=== PATIENT | female | born 1980 | race Caucasian/White ===

== ENCOUNTER → 2021-05-02 14:20 | Outpatient (CLI) | payer MEDICARE, MEDICAID, SELFPAY ==
--- NOTE | 2021-05-02 14:28 | DI.US.S_ITS ---
PROCEDURE: US PELVIC COMPLETE INDICATIONS: MENORRHAGIA TECHNIQUE: Real-time scanning was performed of the pelvic organs, with image documentation. Additional endovaginal scanning was necessary due to incomplete visualization of the adnexal and endometrial structures by transabdominal scanning. COMPARISON: [facility], US, US PELVIC+TRANSVAG, 11/01/2016, 13:28. FINDINGS: Uterus: Uterus is normal in size at 9.4 x 5.2 x 6.6 cm. The endometrium measures 18.3 mm in combined thickness. 9 mm cystic structure so should with the endometrial complex which is mildly complex with wall irregularity. 11 mm intramural fibroid. Ovaries: Ovaries not identified. No adnexal masses seen. Other: No pathologic free abdominal or pelvic fluid. Debris noted within the urinary bladder. IMPRESSION: 1. Abnormal appearance endometrial complex which is thickened and there is a complex cystic structure centrally. Although findings may be related to endometrial hyperplasia, other benign or malignant endometrial neoplasms cannot be excluded and close clinical correlation is recommended. Recommend short-term follow-up pelvic ultrasound to assess for interval thinning and if the thickening persists, recommend endometrial biopsy for pathologic diagnosis. 2. Debris within the urinary bladder. Recommend correlation with urinalysis to exclude cystitis. Dictated by: Beltran GILES Interpreted: Howard Barajas MD on 05/02/2021 at 16:31 Transcribed by: ALVA on 05/02/2021 at 16:33 Approved by: Howard Barajas M.D. on 05/03/2021 at 17:11
== END ==
PROVIDERS: PCP Family Medicine; Referring Provider Obstetrics & Gynecology; Visit Provider Obstetrics & Gynecology
DX: N92.1 Excessive and frequent menstruation with irregular cycle (principal); R93.89 Abnormal findings on diagnostic imaging of other specified body structures; D25.1 Intramural leiomyoma of uterus; N85.8 Other specified noninflammatory disorders of uterus
CPT/HCPCS: 76830; 76856

== ENCOUNTER → 2021-05-03 16:54 | Outpatient (CLI) | payer MEDICARE, SELFPAY ==
[2021-05-03 19:16] LABS: Luteinizing Hormone 6.26 mIU/mL
== END ==
PROVIDERS: PCP Family Medicine; Referring Provider Obstetrics & Gynecology; Visit Provider Obstetrics & Gynecology
DX: N95.1 Menopausal and female climacteric states (principal)
CPT/HCPCS: 36415; 83001; 83002

== ENCOUNTER → 2021-07-14 14:52 | Outpatient (CLI) | payer MEDICARE, MEDICAID, SELFPAY ==
[2021-07-14 16:30] LABS: Alanine Aminotransferase 66 IU/L (<35); Albumin 4.3 g/dL (3.5-5.0); Albumin Globulin Ratio 1.9 (1.0-2.8); Alkaline Phosphatase 63 U/L (38-126); Aspartate Aminotransferase 48 IU/L (14-36); Bilirubin Total 0.2 mg/dL (0.2-1.3); Bilirubin Unconjugated 0.2 mg/dL (0.0-1.1); Globulin 2.3 g/dL (1.7-4.1); HEMOLYSIS < 15 (0-50); Total Protein 6.6 g/dL (6.3-8.2)
== END ==
PROVIDERS: PCP Family Medicine; Referring Provider Obstetrics & Gynecology; Visit Provider Obstetrics & Gynecology
DX: R82.2 Biliuria (principal)
CPT/HCPCS: 36415; 80076

== ENCOUNTER → 2021-09-26 12:59 | Outpatient (CLI) | payer MEDICARE, MEDICAID, SELFPAY ==
[2021-09-26 14:06] LABS: COVID19 -Nasal RAPID Negative (Negative)
== END ==
PROVIDERS: PCP Family Medicine; Visit Provider Obstetrics & Gynecology
DX: Z01.812 Encounter for preprocedural laboratory examination (principal); Z20.822 Contact with and (suspected) exposure to COVID-19
CPT/HCPCS: 87635

== ENCOUNTER 2021-09-28 08:35 | Day surgery (SDC) | payer MEDICARE, MEDICAID, SELFPAY ==
[2021-09-25 09:51] VITALS: BMI 28.5
[2021-09-28] VITALS (15 sets, daily range): BP systolic 107–141; BP diastolic 45–90; PULSE 60–98; RESP 14–19; TEMP 36.1–37.3; O2SAT 92–99; BMI 28.5
--- NOTE | 2021-09-28 | PATH_ITS ---
[facility] Accession Number: [id number] . 01 Material submitted: . uterus - UTERUS, BILATERAL TUBES, CERVIX . 02 Diagnosis: Uterus, Bilateral Tubes and Cervix, Hysterectomy, Bilateral Salpingectomy: 1. Adenomyosis. 2. Leiomyomas. 3. Non-cycling endometrium. 4. Bilateral fallopian tubes with no diagnostic abnormality. 5. No evidence of malignancy or atypical hyperplasia. [facility] 10/03/2021 1422 Local . 02 Electronically signed: . Marley Vega MD, Pathologist NPI- [id number] . 01 Gross description: . The specimen is received in formalin, labeled uterus, cervix, bilateral tubes and consists of a 132 gram uterus and cervix measuring 11.0 cm from superior fundus to cervix by 7.0 cm from cornu to cornu by 4.2 cm from anterior to posterior. The serosa is du-pink and smooth. The du-pink smooth ectocervix measures 3.2 x 3.0 cm and there is a 0.3 x 0.3 cm os. The specimen is bivalved to reveal a du-pink herringbone endocervical mucosa. The endometrial cavity measures 4.2 x 3.0 cm and displays a du-pink focally hemorrhagic endometrium measuring 0.3 cm in thickness. The myometrium is du-pink and trabeculated measuring 2.0 cm in thickness. There are two du-white whorled leiomyomata measuring 0.4 x 0.4 x 0.3 cm and 2.5 x 1.8 x 1.2 cm. No areas of hemorrhagic, necrosis or cystic degeneration are identified. Also received are two detached fallopian tubes measuring 1.5 cm in length by 0.6 cm in diameter and 2.5 cm in length by 0.7 cm in diameter. The serosa is du-pink and ragged with multiple paratubal cysts ranging from 0.1-0.3 cm. Sectioning reveals a du-pink mucosa and a stellate lumen measuring 0.2 cm in diameter. Otr Tanker Truck Driver sections are submitted. . A1: Anterior cervix. A2: Posterior cervix. A3-A5: Anterior uterus, to include retail representative leiomyomata. A6-A7: Posterior uterus. A8-A9: Fallopian tubes, central cross sectioned and bisected fimbria. (EA:[id number]) /MRV 09/29/2021 1210 Local . 02 Pathologist provided ICD-10: N92.1, N80.0, D25.9 . 02 CPT . 268563 Performed at: 01 [facility] [address] [id number] MD Manish Painting MD Phone: [phone] Performed at: 02 [facility] [place] [address] [place], [place] [id number] MD Marley Vega MD Phone: [phone]
[2021-09-28] MEDS: LACTATED RINGERS 1,000 ML 42 ML IV ×2 (09:16→11:44)
[2021-09-28 09:26] LABS: Add Manual Diff / Slide Review NO; Basophils Absolute Auto 0 /uL (0-100); Basophils Percent Auto 0.7 % (0-2); Eosinophils Absolute Auto 0 /uL (0-450); Eosinophils Percent Auto 0.6 % (2-4); Hematocrit 38.8 % (36-46); Hemoglobin 12.8 g/dL (12.0-16.0); Lymphocytes Absolute Auto 1600 /uL (1100-4500); Mean Corpuscular HGB Conc 33.1 % (30-36); Mean Corpuscular Hemoglobin 27.7 PG (26-34); Mean Corpuscular Volume 83.7 fL (80-100); Monocytes Absolute Auto 300 /uL (0-900); Neutrophils Absolute Auto 3700 /uL (1500-7000); Neutrophils Percent Auto 64.7 % (50-75); Platelet Count 358 X10^3/uL (150-400); Red Blood Cell Count 4.63 X10^6/uL (4.0-5.2); Red Cell Distribution Width 15.6 % (11.6-14.8); White Blood Cell Count 5.7 X10^3/uL (4.5-11.0)
--- NOTE | 2021-09-28 09:50 | PM.PREOP ---
Pre-operative Note COVID-19 COVID-19 status: Negative Result date/Date tested (Pos, Neg/Pending): 09/26/21 Interval Note History & Physical reviewed/Exam performed by Physician: Yes Changes to H&P: No
[2021-09-28] MEDS: CEFAZOLIN 2 GM/20 ML SYRINGE IV (11:10)
--- NOTE | 2021-09-28 11:30 | SUR.OPER ---
Lithotomy on padded OR bed. [place] Pad Positioner under torso. Head on pillow, arms padded and tucked at sides. Legs secured in padded yellow fins stirrups.
[2021-09-28] MEDS: BUPIVACAINE 0.5% W/ EPI (PF) 30 ML VIAL INJ (11:33)
[2021-09-28] MEDS: ACETAMINOPHEN IV 1,000 MG/100 ML VIAL 400 MG IV (12:18)
[2021-09-28] MEDS: ROPIVACAINE 0.2% PF 2 MG/ML 10ML AMP 20 ML INJ (12:20)
[2021-09-28] MEDS: HYDROMORPHONE 2 MG INJ IV ×9 (12:45→23:47)
[2021-09-28] MEDS: fentaNYL 100 MCG/2 ML INJ (12:57)
[2021-09-28] MEDS: MEPERIDINE 50 MG/ML INJ 25 MG IV ×2 (13:04→13:11)
--- NOTE | 2021-09-28 13:08 | PM.GYNOP.1 ---
Operative Date/Time/Diagnoses Date of procedure: 09/28/21 Time of procedure: 11:00 Pre-op diagnosis: Menometrorrhagia Thickened endometrial stripe on ultrasound Post-op diagnosis: same Procedure & Clinicians Procedure: Procedures Operation Date: 09/28/21 09:45 Actual Procedure Side Surgeon p Total Laparoscopic Hysterectomy w/ Bilateral Salpingectomy Bilateral Aaron Baum MD Indications: Herminia Herrera) is a 40 yo LMP approximately two weeks ago who?presented initially in referral from Dr. Jere Salter for evaluation of an 8 month history of menometrorrhagia associated with her being on chemotherapy for essential thrombocytosis.? Prior 16 months ago, the patient had regular, predictable periods lasting 3-5 days at 28-30 day intervals.? With the initiation of chemotherapy however she began bleeding continuously and continued to bleed continuously up until about 2 months ago.? She states that she has not had any vaginal bleeding while on hydroxyurea for essential thrombocytosis and has experienced symptoms suggestive of premature ovarian failure but FSH and LH are not consistent with ovarian failure. A pelvic US performed at diagnostic imaging on 05/02/2021 showed: FINDINGS: ? Uterus:? Uterus is normal in size at 9.4 x 5.2 x 6.6 cm.? The endometrium measures 18.3 mm in combined thickness.? 9 mm cystic structure so should with the endometrial complex which is mildly complex with wall irregularity.? 11 mm intramural fibroid. ? Ovaries:? Ovaries not identified.? No adnexal masses seen. ? Other: ? No pathologic free abdominal or pelvic fluid.? Debris noted within the urinary bladder. ? IMPRESSION: ? 1. Abnormal appearance endometrial complex which is thickened and there is a complex cystic structure centrally.? Although findings may be related to endometrial hyperplasia, other benign or malignant endometrial neoplasms cannot be excluded and close clinical correlation is recommended.? Recommend short-term follow-up pelvic ultrasound to assess for interval thinning and if the thickening persists, recommend endometrial biopsy for pathologic diagnosis. ? 2. Debris within the urinary bladder.? Recommend correlation with urinalysis to exclude cystitis. Subsequent endometrial biopsy shows only DIS synchronous endometrium but no atypia, hyperplasia, or neoplasia.? In addition to the menstrual abnormalities experienced while on chemotherapy, the patient also has been having white patches in the vagina and on the perineal area.? They are not pruritic and seemingly come and go with no association to any events, activities, or her menstrual cycle.? Initial response to clobetasol minimal for what was thought to be lichen sclerosus and dermatology consult confirmed.? Hydroxyurea was discontinued and the lesions have steadily improved but her severe menometrorrhagia has returned even worse than ever.? The patient has a past history of pulmonary embolus and uterine perforation with prior use of an intrauterine device.? She also expresses a desire to avoid any sort of hormone therapy if necessary insofar as treatment of her abnormal periods. She has been found to have iron deficiency anemia during her treatment and this is thought to be aggravated by her excessive menses. After consideration of all options the patient has opted to move forward with total laparoscopic hysterectomy with bilateral salpingectomy and preservation of her ovaries.? She is currently scheduled to have her surgery performed in the main OR of [facility] on 09/28/2021 and presents today for her scheduled surgery. Surgeon: Aaron Baum Medical Imaging Specialist: Adelita Dow Anesthesia Type: General Operative Notes Findings: The uterus is upper limits of normal size and there is a left sided fundal myoma measuring approximately 2.5 cm in diameter. The remainder the pelvis and abdomen were normal to laparoscopic visualization. Closure Type: primary Specimen(s): left tube, right tube and uterus Applied: catheter Estimated blood loss (mL): 50 Blood products transfused: none Procedure in detail: With the patient under satisfactory general endotracheal anesthesia in the modified dorsal lithotomy position the perineum vagina and abdomen were prepped and draped for total laparoscopic hysterectomy. A pre-surgical safety time-out was then taken in accordance with [facility] protocols. A bivalve speculum was inserted in the vagina and the cervix visualized. The anterior lip of the cervix was grasped with a single-tooth tenaculum and the endocervical canal was dilated to 8 mm. A Shirley Mae's uterine manipulator with a medium cup was then placed in the usual manner and attention turned to the laparoscopic portion of the case. The umbilicus was then infiltrated with 0.5% Marcaine with epinephrine and a 5 mm transverse incision was then made in the line of her tubal ligation scar. The Veress needle was used to insufflate the abdomen with carbon dioxide and once insufflated a 5 mm bladeless trocar was then placed through the umbilical incision. Presence of the port in the abdominal cavity was confirmed laparoscopically. Two additional 5 mm ports were then placed in both the left and right mid quadrants using a similar technique. Using a 3 puncture technique the pelvis and abdomen were thoroughly visualized with the findings as noted above. Uterine manipulator was was used to grasp the distal aspect of the right fallopian tube and it was excised using a LigaSure device. The distal tubal remnant was then removed through one of the laparoscopic ports and submitted as part of the aggregate specimen. The dissection with the LigaSure was then carried across the utero-ovarian ligament on the right-hand side followed by the round on that side. The dissection was then carried out down the lateral aspect of the uterus on the right-hand side to the level of the colpotomy cup and at that point the bladder flap was created starting on the right side. Dissection of the peritoneum was then carried out posteriorly across the edge of the colpotomy cup and attention was then turned to the left side. The distal fallopian tube on the left side was then excised using LigaSure device and submitted along with the distal aspect of the right fallopian tube. The dissection was carried down across the utero-ovarian ligaments, the round ligament, and down the lateral aspect of the uterus on the left side to the level of the colpotomy cup. The vessels were then coagulated and divided on the left-hand side as they had been on the right and the uterus was seen to laine confirming devascularization. Once the tissues overlying the colpotomy cup had been fully devascularized and dissected away, a monopolar hook cautery was used to perform the circumferential colpotomy using the colpotomy cup as a guide. Colpotomy was completed without difficulty and the uterus was able to be removed vaginally without difficulty. At that point closure of the vaginal cuff was accomplished after placing a medium weighted speculum in the vagina. 0 Vicryl qimzoz-hv-lonla interrupted were used to close the vaginal cuff and at the completion of closure the cuff was both hemostatic and all edges well approximated. The abdomen was then reinsufflated and attention was then turned to inspection of the pelvis which was completely hemostatic. The ureters were seen to be freely peristalsing on both sides and no abnormalities were noted. 20 cc of ropivacaine was then placed in the posterior cul-de-sac and the pneumoperitoneum was vented. The 5 mm port sleeves were then removed and the port incisions closed with 4-0 Monocryl using inverted interrupted sutures. Appropriate dressings were applied and the patient was awakened from surgery and transported to the PACU for a period of recovery and recuperation. Complications experience none, EBL approximately 50 cc. Complications: none Post-operative Condition: stable Disposition: PACU
[2021-09-28] MEDS: fentaNYL 100 MCG/2 ML INJ IV ×2 (13:20→13:25)
[2021-09-28] MEDS: LORazepam 2 MG/ML INJ 0.5 MG IV ×2 (13:23→13:35)
[2021-09-28] MEDS: OXYCODONE/ACETAMINOPHEN 5/325 TABLET 1 TAB PO ×2 (13:40→14:13)
[2021-09-28] MEDS: LACTATED RINGERS 1,000 ML 100 ML IV (15:25)
--- NOTE | 2021-09-28 16:14 | PC.NURSE ---
Addendum entered by Liliane Suggs R.N. 09/28/21 17:13: Patient given IV pain medication at 1522, became agitated around 1650 asking for pain meds. Explained to patient that she gets the medication every 2 hours, she asked if this RN could call the Dr. and this RN stated not as this time. He already addressed pain issues and knows that patient is going to have a difficult management with medication. She implied that she was not drug seeking but stated that I was treating her like an addict, saying that I was treating her differently then everyone else. This RN explained to patient that we would not be able to give pain medication every hour and that her pain is not going to go away 100%, but it is given to make her comfortable. Patients attitude changed right away to sweet as soon as she was given 2mg of iv dilaudid at 1700. Pain medication is every 2 hours and she is able to have it half an hour early. Will reassess her discomfort in two hours. She also did share her past with this RN and explained that she takes methadone daily for hx of drug abuse in the past. She does have a high pain tolerance and we will give pain medication accordingly. Patient does have 4mg of iv dilaudid available and if she needs this later we can try it. She had several doses of pain medication in the pacu, along with ativan. This RN does not feel comfortable giving 4mg at this time and we are watching her mentation closely and her respirations. Original Note: Assess- Patient is alert and oriented x3. She has 3 small lap sites that are all cdi, with a prema pad and suggs catheter in place. Patient takes methadone daily and states that she has a high pain tolerance. She was given several pain medications and ativan down in the pacu. Patient has been awake since being up on the floor and states that her pain is a 7/10. Given 2mg of iv dilaudid and helpful to patient, she has LR at 100cc/hr infusing and is tolerating this well. Delio in the room with her. She is tolerating bites of food and drinks without any nausea.
[2021-09-28] MEDS: ACETAMINOPHEN 325 MG TABLET 650 MG PO (19:46)
[2021-09-28] MEDS: HYDROMORPHONE 4 MG TABLET PO (19:47)
[2021-09-28] MEDS: LORazepam 0.5 MG TABLET PO (19:47)
[2021-09-28] MEDS: DOCUSATE 100 MG CAPSULE 200 MG PO (21:45)
[2021-09-28] MEDS: QUETIAPINE 100 MG TABLET PO (21:45)
[2021-09-28] MEDS: LEVOTHYROXINE 50 MCG TABLET PO (21:49)
[2021-09-28] MEDS: CLOBETASOL 0.05% OINTMENT 15 GM 1 APPLIC TOP (21:59)
[2021-09-29] VITALS: BP 121/69; PULSE 73; RESP 18; TEMP 36.3; O2SAT 96
[2021-09-29] MEDS: LACTATED RINGERS 1,000 ML 100 ML IV (01:06)
[2021-09-29] MEDS: HYDROMORPHONE 2 MG INJ IV ×2 (03:51→06:39)
[2021-09-29 03:53] VITALS: BP 118/78; PULSE 71; RESP 17; TEMP 36.7; O2SAT 97
[2021-09-29] MEDS: METHADONE 10 MG TABLET 90 MG PO (06:23)
--- NOTE | 2021-09-29 07:40 | PC.NURSE ---
Assess- Patient is pleasant this morning, denies pain at this time. She has 3 small incisions with dressings that are cdi. Patient has not needed pain medication thus far as she was given iv dilaudid. Will transition her over to 4mg of po dilaudid and see how this goes. got patient up to the bathroom and she had a bowel movement. Will remove suggs catheter when Dr. Baum comes to see patient.
--- NOTE | 2021-09-29 08:50 | CM.DANOTE ---
DCP: Case received, EMR reviewed and met with patient. Spouse, Blaze, was also at bedside. Introduced self and role. Was able to obtain information regarding patient's baseline activity level prior to hospitalization. DCP assessment completed with information currently available. Patient is a 40 year old female who admitted yesterday morning to the care of the [facility]. PCP: Dr. Luna. Payer: confirmed: Medicare/Medicaid. Patient came to the hospital via private vehicle for a surgical procedure. She had total laparoscopic hysterectomy with bilateral salpingectomy. Patient has history of menometorrhagia, associated with being on chemo for thromboycytosis. Met with patient in her room. She was in bed, at bedside. Confirmed that she is independent at her baseline. Her and her spouse reside in [place]. Her primary provider is Dr. Luna. Confirmed that spouse will assist her with any needs at home. P: DCP to continue to follow. Patient should be able to go home when she is deemed medically stable. Tavia Yousif RN/Deicer Repairer Pneumatic Discharge Planning/Care Management CM Discharge Assessment Start: 09/29/21 08:49 Freq: Status: Active Protocol: Document 09/29/21 08:49 (Rec: 09/29/21 08:50 [id number]) Discharge Planning Assessment Assigned Educational Speech Language Clinician Tavia Yousif RN/Deicer Repairer Pneumatic Advance Directives? No History Provided By Patient,Medical Record Household Members spouse Type of transporation used prior to Drives own vehicle admit Independent with ADL's Yes Is patient alert and oriented? Yes Caregiver for Another No Barriers to Discharge No Discharge Plan Home Transportation Arrangement Spouse Referrals Initiated None needed Review Status In Process Next Review Type Continued Stay Review Pre-Anesthesia Assessment Start: 09/25/21 09:51 Freq: Status: Active Protocol: Document 09/25/21 09:51 CAB (Rec: 09/25/21 09:58 CAB [id number]) Pre-Anesthesia Assessment Preferred Name Andree Patient Information Reviewed Via Chart Review Comment COVID screen @ 09/25/21 Primary Care Provider Mike Luna Seen Specialist in Last 12 Months Yes Specialist Seen Welding Equipment Repairer Supervisor,Ocean Biologist, Oncologist Primary Language Yoruba Osteopathic Resident Required No Height 5 ft 3 in Weight 161 lb Body Mass Index (BMI) 28.5 Barriers to Learning None Hx Anesthesia Reactions No Hx Blood Transfusions Yes: r/t severe anemia Anesthesia Review Requested No Research Professional No Comment Hx of subtance abuse'96 History of Falling (Recent or History of No ) Patient is completely paralyzed or No completely immobile Mental Status Oriented to own ability Hx Sleep Apnea No Currently Taking a Beta Elfego No Anti-Coagulant Therapy No Cardiac Testing No Hx Pacemaker/ICD No Pacemaker Rep Required? No Cardiac Clearance Received Not Applicable Urinary Catheter Present No Hx Urinary Self Catheterization No Diabetes No Patient No Lactating No Marital Status Patient Discharge Plan Description Return Home
[2021-09-29] MEDS: DOCUSATE 100 MG CAPSULE 200 MG PO (09:16)
--- NOTE | 2021-09-29 09:52 | PM.DS.1 ---
History of Present Illness History of Present Illness Date Patient Seen: 09/29/21 Time Patient Seen: 09:52 Chief complaint: HYSTERECTOMY *OPB* Narrative: Menometrorrhagia Thickened endometrial stripe on ultrasound Discharge Providers Provider Date of admission: 09/28/2021 Discharge Date: 09/29/21 Primary care physician: Mike Luna MD Discharge provider: Aaron Baum MD Summary Hospital Course Discharge Diagnosis: Menometrorrhagia, resolved Thickened endometrial stripe on ultrasound, resolved Status post total laparoscopic hysterectomy with bilateral salpingectomy Hospital Course: On the afternoon of 09/28/2021 the patient underwent an uneventful total laparoscopic hysterectomy with bilateral salpingectomy. The details of that procedure well summarized on my operative note of that date. Following her surgery the patient has done extremely well despite some issues with pain management due to her being on methadone maintenance. She is ambulating independently, has had prompt return of bowel and bladder function, tolerating regular diet, and her pain is well controlled with oral medications. Vital signs are stable and 1st postop a.m. CBC is pending due to late draw. Patient is now discharged and afebrile normotensive condition home with medications to include her pre-surgical medications as well as Dilaudid 2 mg 1-2 every 4 hours as needed pain dispense 40 with no refills, and Lovenox 40 mg subQ times 10 days. She will be scheduled to be seen in the office in 2 weeks for her postop check and prior to discharge she was counseled regarding precautionary symptoms, limitations, medications, and follow-up plans. In addition to Lovenox she I will initiate daily 81 mg aspirin therapy due to her history of DVT and essential thrombocytosis. Status at Discharge Cognitive/behavioral status at discharge: oriented Functional status at discharge: independent ambulation Overall status at discharge: patient is progressing back to baseline Time Spent with Patient Time spent: Less than 30 minutes Exam Vital Signs (past 8 hours): - 09/29/21 03:53 Temperature 98.1 F Pulse Rate 71 Respiratory Rate 17 Blood Pressure 118/78 Pulse Oximetry 97 Oxygen Delivery Method Room Air Oxygen Flow Rate 2 Const General: cooperative and comfortable Nutritional Appearance: average body habitus [facility] Head: normal to inspection Ears: hearing grossly normal bilaterally Nose: external nose normal Eyes General: appearance normal, both eyes and all related structures EOM: EOM intact bilaterally Neck Neck: normal visual inspection Resp Effort & Inspection: normal respiratory effort and able to speak in complete sentences Auscultation: clear to auscultation bilaterally Cardio Rate: regular rate Rhythm: regular rhythm Heart Sounds: S1 normal, S2 normal and no murmurs GI Inspection: normal to inspection and incision (All 3 laparoscopic port incision dressings are clean and dry) Palpation: soft, no hepatosplenomegaly and tender (Mild, postsurgical) External Female Exam: other (Exam deferred, no bleeding noted by patient or nursing staff) Extrem General: no calf tenderness Psych Appearance: grossly normal Mental Status: mental status grossly normal Speech and Movement: speech and movement normal Mood: congruent mood Affect: normal affect Attitude: cooperative Thought Process: normal Thought Content: normal Judgment: judgment good Objective Labs Result Diagrams: 09/29/21 09:50 [facility] Medical History (Updated 10/12/21 @ 11:41 by Aaron Baum MD) Abnormal uterine bleeding (AUB) ADHD (~1987) Amniotic fluid embolism Anemia (~2017) Anxiety (~2017) Atrophic vaginitis Cancer of blood vessel (~2018) Carpal tunnel syndrome (~2014) Cervical spine disease (~2014) Deep vein thrombosis (~2017) Endometrial thickening on ultrasound Essential thrombocytosis Fibromyalgia (~2017) Headache (~1985) Heavy menstrual period (~2018) History of bipolar disorder (~2009) Hypertension Hypothyroidism (~2008) Irregular menstrual cycle (~2018) Kidney stones (~2018) Leukemia (~2018) Menopausal symptoms Migraines (~1985) Oxygen dependent (~2019) Painful menstrual periods (~1992) Pulmonary embolism (~2017) Rheumatoid arthritis (~2007) Sarcoidosis (~2016) Substance abuse (~1995) Vertigo (~2003) Surgical History Anesthesia Encounter for IUD removal (~2014) History of tonsillectomy (~2001) History of tubal ligation (~2003) Family History Father Colon cancer Diabetes mellitus History of heart disease Hypertension Mother Brain tumor Social History household members: spouse Smoking Status: Never smoker alcohol intake: never Discharge Assessment & Plan Assessment and Plan Assessment: Menometrorrhagia Thickened endometrial stripe on ultrasound Status post total laparoscopic hysterectomy with bilateral salpingectomy Plan of Treatment: Routine postoperative care Postop Lovenox subQ times 10 days Discharge Plan Discharge Plan Patient Disposition: Home Provider Discharge Comment: Please review the written instructions provided at the time of discharge. Your follow-up appointment is scheduled for 2 weeks from the time of your surgery and I look forward to seeing you then. If the meanwhile you have issues, concerns, or problems that I can assist with, please feel free to contact me either through the office phone or via the patient portal. Discharge orders & Medications Discharge Orders: Discharge (Order); Ordered 09/29/21 Ordered By: Aaron Baum Prescriptions: New hydromorphone 2 mg tablet 2 mg PO Q4H PRN (Reason: pain) Qty: 40 0RF Rx Instructions: Slowly taper dosage to stop in 5 days or less. Continued clobetasol 0.05 % ointment 1 applic topical BID 14 Days Qty: 60 6RF quetiapine [Seroquel] 100 mg tablet 100 mg PO DAILY 0RF levothyroxine 50 mcg capsule 50 mcg PO DAILY 0RF hydroxychloroquine 200 mg tablet 200 mg PO DAILY 0RF lorazepam 0.5 mg tablet 0.5 mg PO BID PRN (Reason: Anxiety) 0RF dextroamphetamine-amphetamine [Adderall] 20 mg tablet 20 mg PO DAILY 0RF methadone 94 mg PO DAILY 0RF Discontinued hydroxyurea 500 mg capsule 500 mg PO DAILY 0RF Label Comments: stopped 2 months ago Follow up/Referrals: Mike Luna MD [Primary Care Provider] - Diet/Activity/Treatments Diet: Diet as Tolerated Activity: As tolerated Other treatments: Please limit opioid use to 5 days or less. Once Lovenox is completed after 10 days, restart daily aspirin 81 mg. Skin/Wound/Dressing Care Report to your healthcare provider any signs of infection, such as:: chills, fever, increased pain, unusual drainage and unusual redness Dressing: May be removed on the morning of 09/30/2021 Visit Report/Discharge Packet Instructions: DI for Hysterectomy, DI for Laparoscopy, DI for Prescription Opioid Use, Hydromorphone Stand Alone Forms: Surgery Discharge Print Language: Setswana Discharge Data Primary Care Provider: Mike Luna Attending Provider: Aaron Baum
[2021-09-29 10:08] LABS: Add Manual Diff / Slide Review NO; Basophils Absolute Auto 100 /uL (0-100); Basophils Percent Auto 0.5 % (0-2); Eosinophils Absolute Auto 100 /uL (0-450); Eosinophils Percent Auto 0.7 % (2-4); Hematocrit 36.3 % (36-46); Hemoglobin 11.9 g/dL (12.0-16.0); Lymphocytes Absolute Auto 2900 /uL (1100-4500); Lymphocytes Percent Auto 26.2 % (25-40); Mean Corpuscular HGB Conc 32.8 % (30-36); Mean Corpuscular Hemoglobin 27.7 PG (26-34); Mean Corpuscular Volume 84.4 fL (80-100); Monocytes Absolute Auto 800 /uL (0-900); Monocytes Percent Auto 7.1 % (3-14); Neutrophils Absolute Auto 7200 /uL (1500-7000); Neutrophils Percent Auto 65.5 % (50-75); Platelet Count 309 X10^3/uL (150-400); Red Cell Distribution Width 15.8 % (11.6-14.8); White Blood Cell Count 10.9 X10^3/uL (4.5-11.0)
[2021-09-29] MEDS: ENOXAPARIN 40 MG/0.4 ML SYRINGE SUBCUT (11:06)
[2021-09-29] MEDS: HYDROMORPHONE 4 MG TABLET PO (11:20)
== END 2021-09-29 11:26 | disposition home or self-care (01) ==
LOC: OR 08:40 → AC 08:43
PROVIDERS: PCP Family Medicine; Referring Provider Obstetrics & Gynecology; Visit Provider Obstetrics & Gynecology
PROC: 0UT94ZZ Resection of Uterus, Percutaneous Endoscopic Approach (ICD-10-PCS; CPT 58571; principal; 2021-09-28 09:45)
DX: N92.1 Excessive and frequent menstruation with irregular cycle (principal); N80.0 Endometriosis of uterus; Z86.718 Personal history of other venous thrombosis and embolism; N83.8 Other noninflammatory disorders of ovary, fallopian tube and broad ligament; D25.1 Intramural leiomyoma of uterus
CPT/HCPCS: 58571; 85025; J0131; J0330; J0690; J1100; J1170; J1650; J2060; J2175; J2405; J2704; J2795; J3010

== ENCOUNTER → 2021-10-18 16:37 | Outpatient (CLI) | payer MEDICARE, MEDICAID, SELFPAY ==
[2021-09-28 14:39] VITALS: BMI 28.5
== END ==
PROVIDERS: PCP Family Medicine; Referring Provider Obstetrics & Gynecology; Visit Provider Obstetrics & Gynecology
DX: R31.9 Hematuria, unspecified (principal); R35.89 Other polyuria
CPT/HCPCS: 87086

== ENCOUNTER → 2021-10-20 15:10 | Outpatient (CLI) | payer MEDICARE, MEDICAID, SELFPAY ==
[2021-09-28 14:39] VITALS: BMI 28.5
[2021-10-20 15:21] LABS: Add Manual Diff / Slide Review NO; Basophils Absolute Auto 0 /uL (0-100); Basophils Percent Auto 0.3 % (0-2); Eosinophils Absolute Auto 300 /uL (0-450); Hemoglobin 14.2 g/dL (12.0-16.0); Lymphocytes Absolute Auto 1800 /uL (1100-4500); Lymphocytes Percent Auto 30.5 % (25-40); Mean Corpuscular HGB Conc 33.7 % (30-36); Mean Corpuscular Hemoglobin 28.2 PG (26-34); Mean Corpuscular Volume 83.5 fL (80-100); Monocytes Absolute Auto 500 /uL (0-900); Monocytes Percent Auto 7.9 % (3-14); Neutrophils Absolute Auto 3200 /uL (1500-7000); Neutrophils Percent Auto 55.3 % (50-75); Platelet Count 351 X10^3/uL (150-400); Red Blood Cell Count 5.03 X10^6/uL (4.0-5.2); Red Cell Distribution Width 15.7 % (11.6-14.8); White Blood Cell Count 5.7 X10^3/uL (4.5-11.0)
== END ==
PROVIDERS: PCP Family Medicine; Referring Provider Obstetrics & Gynecology; Visit Provider Obstetrics & Gynecology
DX: N76.0 Acute vaginitis (principal); G89.18 Other acute postprocedural pain
CPT/HCPCS: 36415; 85025

== ENCOUNTER → 2021-10-23 13:06 | Outpatient (CLI) | payer MEDICARE, MEDICAID, SELFPAY ==
[2021-09-28 14:39] VITALS: BMI 28.5
--- NOTE | 2021-10-23 | DI.US.S_ITS ---
PROCEDURE: US PELVIC COMPLETE INDICATIONS: POST-HYSTERECTOMY. VAGINAL CUFF CELLULITIS. RULE OUT ABSCESS TECHNIQUE: Real-time scanning was performed of the pelvic organs, with image documentation. Additional endovaginal scanning was necessary due to incomplete visualization of the adnexal and endometrial structures by transabdominal scanning. COMPARISON: [facility], , PELVIC COMPLETE, 05/02/2021, 14:38. FINDINGS: Uterus: Status post hysterectomy. The vaginal cuff appears mildly hyperemic. No evidence for organized fluid collection identified within the vaginal vault. Ovaries: The ovaries are not well visualized. There is a moderate amount of free fluid with echogenic debris noted in the region the right adnexa. Other: No organized fluid collections noted. IMPRESSION: Status post hysterectomy. Vaginal cuff appears mildly hyperemic. Moderate amount of pelvic free fluid with echogenic debris noted within the region of the right adnexa. Otherwise, no evidence for abscess or organized fluid collection in the vaginal vault or pelvis. If there is persistent clinical concern for pelvic/intra-abdominal abscess, further evaluation with contrast enhanced CT can be considered. We strive to produce accurate, complete, and clear reports of imaging services. To assist us in improving patient care, this report was composed using standard report templates and voice recognition software. Therefore, it may contain abnormal punctuation, insertions and/or omissions. Occasional wrong-word or sound-alike substitutions may occur. Though we review the report and make efforts to correct it, we do recommend that the report be read carefully in proper context to recognize any text inaccuracies. Dictated by: Jose Luis Gould M.D. on 10/23/2021 at 16:11 Approved by: Jose Luis Gould M.D. on 10/23/2021 at 16:22
== END ==
PROVIDERS: PCP Family Medicine; Referring Provider Obstetrics & Gynecology; Visit Provider Obstetrics & Gynecology
DX: N76.0 Acute vaginitis (principal); Z90.710 Acquired absence of both cervix and uterus
CPT/HCPCS: 76830; 76856

== ENCOUNTER → 2021-10-31 16:46 | Outpatient (CLI) | payer MEDICARE, MEDICAID, SELFPAY ==
[2021-09-28 14:39] VITALS: BMI 28.5
[2021-11-02 06:08] LABS: Candida species Negative (Negative); Gardnerella vaginalis Negative (Negative); Trichomoas vaginalis Negative (Negative)
== END ==
PROVIDERS: PCP Family Medicine; Visit Provider Obstetrics & Gynecology
DX: N76.0 Acute vaginitis (principal); R10.9 Unspecified abdominal pain; R31.9 Hematuria, unspecified; R35.89 Other polyuria
CPT/HCPCS: 87070; 87077; 87086; 87205; 87480; 87510; 87660

== ENCOUNTER 2023-10-09 18:54 | Emergency (ER) | payer OTHER, SELFPAY ==
[2021-09-28 14:39] VITALS: BMI 28.5
[2023-10-09] VITALS (9 sets, daily range): BP systolic 155–211; BP diastolic 84–105; PULSE 59–73; RESP 17–24; TEMP 36.7; O2SAT 95–100; BMI 24.8
--- NOTE | 2023-10-09 19:28 | DI.CT.S_ITS ---
PROCEDURE: CT HEAD/BRAIN WO CON INDICATIONS: MURRAY, BLURRED VISION, HTN X3 DAYS TECHNIQUE: Noncontrast 4.5 mm thick angled axial sections acquired from the foramen magnum to the vertex, with coronal and sagittal reformats. For radiation dose reduction, the following was used: automated exposure control, adjustment of mA and/or kV according to patient size. COMPARISON: [facility], CT, CT HEAD WITHOUT CONTRAST, 07/10/2023, 17:09. FINDINGS: Image quality: Diagnostic. CSF spaces: Basal cisterns are patent. No extra-axial fluid collections. Ventricles are normal in size and shape. Brain: No midline shift. No intracranial masses or hemorrhage. Rocha-white matter interface is normal. Skull and face: Calvarium and visualized facial bones are intact, without suspicious lesions. Sinuses: Visualized sinuses and mastoids are clear. IMPRESSION: No acute intracranial pathology. Consider MRI for follow-up evaluation. Dictated by: Fabrice Alvarez M.D. on 10/09/2023 at 19:51 Approved by: Fabrice Alvarez M.D. on 10/09/2023 at 19:52
--- NOTE | 2023-10-09 19:28 | ED_ITS ---
HPI - General Adult General Chief complaint: Hypertension Stated complaint: sent by MD for HBP Time Seen by Provider: 10/09/23 19:03 Source: patient Mode of arrival: Ambulatory History of Present Illness HPI narrative: 42yoF with PMH sarcoidosis, rheumatoid arthritis on methotrexate, severe neck degenerative changes with neuropathy presents by private vehicle for elevated blood pressure readings. Patient is scheduled for neck surgery in 2 weeks and was having an EMG earlier today for nerve assessments. At her EMG appointment her blood pressure was noted to be elevated with systolic blood pressure greater than 200. She called her primary care physician who referred her to the emergency department. Patient states that she has had a low-grade headache for the last 2-3 days that is somewhat different from her normal headaches as well as ?swirly? vision, however otherwise denies chest pain, shortness of breath, leg swelling, other complaints. Denies history of high blood pressure previously. Related Data Home Medications Medication Instructions Recorded Confirmed dextroamphetamine-amphetamine 20 20 mg PO DAILY 05/03/21 07/25/22 mg tablet (Adderall) hydroxychloroquine 200 mg tablet 200 mg PO DAILY 05/03/21 07/25/22 levothyroxine 50 mcg capsule 50 mcg PO DAILY 05/03/21 07/25/22 lorazepam 0.5 mg tablet 0.5 mg PO BID PRN Anxiety 05/03/21 07/25/22 quetiapine 100 mg tablet (Seroquel) 100 mg PO DAILY 05/03/21 07/25/22 methadone 100 mg PO DAILY 11/15/21 07/25/22 Previous Rx's Medication Instructions Recorded clobetasol 0.05 % topical ointment 1 applic topical BID 2 weeks #60 05/04/21 grams hydromorphone 2 mg tablet 2 mg PO Q4H PRN pain #40 tabs 09/29/21 amoxicillin 875 mg-potassium 1 tab PO Q12H #20 tabs 10/20/21 clavulanate 125 mg tablet (Augmentin) hydromorphone 2 mg tablet 2 mg PO Q4H PRN pain #14 tabs 10/20/21 fluconazole 150 mg tablet 150 mg PO Q3D vaginal yeast 11/03/21 (Diflucan) infection 2 doses #2 tabs amlodipine 5 mg tablet 5 mg PO DAILY #30 tabs 10/09/23 Allergies Allergy/AdvReac Type Severity Reaction Status Date / Time ibuprofen AdvReac Severe Abdominal Verified 07/25/22 11:43 Pain morphine AdvReac Severe Headache Verified 07/25/22 11:43 Review of Systems Review of Systems Narrative: Negative except as noted above Patient History Medical History Rheumatoid arthritis (~2007) Sarcoidosis (~2016) Oxygen dependent (~2019) Substance abuse (~1995) History of bipolar disorder (~2009) Anxiety (~2017) Migraines (~1985) Headache (~1985) ADHD (~1987) Fibromyalgia (~2017) Cervical spine disease (~2014) Carpal tunnel syndrome (~2014) Essential thrombocytosis Anemia (~2017) Vertigo (~2003) Painful menstrual periods (~1992) Irregular menstrual cycle (~2018) Heavy menstrual period (~2018) Kidney stones (~2018) Hypothyroidism (~2008) Amniotic fluid embolism Pulmonary embolism (~2017) Hypertension Deep vein thrombosis (~2017) Leukemia (~2018) Cancer of blood vessel (~2018) Endometrial thickening on ultrasound Abnormal uterine bleeding (AUB) Lichen sclerosus of female genitalia Atrophic vaginitis Menopausal symptoms Surgical History Anesthesia Encounter for IUD removal (~2014) History of tubal ligation (~2003) History of tonsillectomy (~2001) Family History Father Colon cancer Diabetes mellitus History of heart disease Hypertension Mother Brain tumor Social History household members: spouse Smoking Status: Never smoker alcohol intake: never Smoking Status: Never smoker Substance Use Type: former substance user and marijuana Exam Initial Vital Signs Initial Vital Signs: Vital Signs Temperature 98.1 F 10/09/23 19:03 Pulse Rate 72 10/09/23 19:03 Respiratory Rate 18 10/09/23 19:03 Blood Pressure 211/104 H 10/09/23 19:03 Pulse Oximetry 99 10/09/23 19:03 Oxygen Delivery Method Room Air 10/09/23 19:03 Const: Awake, alert, no acute distress, nontoxic appearing Eyes: PERRL, EOMI, conjunctiva normal ENT: Atraumatic, dentition normal, mucous membranes moist Cardiac: regular rate, regular rhythm RESP: unlabored, clear bilaterally, no wheezing GI: Atraumatic, soft, nontender, nondistended, no rebound, no guarding MSK: Atraumatic, full range of motion, pulses equal Skin: Warm, Dry, intact, no rashes Neuro: AO x3, CN II-XII grossly intact, moves all extremities Psych: affect normal, mood normal, not suicidal, not homicidal Course Course Course Narrative: Well-appearing patient with otherwise asymptomatic hypertension. Patient has NIH of 0, neurologically at baseline, however due to headache and reports of slight change in vision we will order a CT brain. Patient's blood pressure on arrival 211/104, however when resting comfortably in ED bed blood pressure decreases to 180 systolic. Orders Ordered: ED Orders 10/09/23 19:23 EKG-12 Lead Stat 10/09/23 19:26 CBC Auto Diff [Complete Blood Count AUTO DIFF] Stat CMP [Comprehensive Metabolic Panel] Stat Troponin & CK Cardiac Panel Stat 10/09/23 19:28 CT head/brain wo con Stat Discontinued Medications Ibuprofen (Ibuprofen 400 Mg Tablet) 400 mg PO NOW ONE Stop: 10/09/23 20:11 Last Admin: 10/09/23 20:15 Dose: 400 mg Documented By: BS Reevaluation(s) Reevaluation #1: Laboratory work is reviewed, unremarkable. CT of the brain negative for acute findings. Without any interventions blood pressure has decreased to 159/92. With no evidence of end-organ damage and normal CT plan to discharge patient home with amlodipine. Cousneled to keep a BP log to bring to PCP appointment. Vital Signs Vital signs: Vital Signs - 8 hr 10/09/23 19:03 10/09/23 19:25 10/09/23 19:25 Temperature 98.1 F Pulse Rate 72 73 Respiratory Rate 18 Blood Pressure 211/104 H 206/105 H Pulse Oximetry 99 99 Oxygen Delivery Method Room Air 10/09/23 19:27 10/09/23 19:27 10/09/23 19:30 Temperature Pulse Rate 66 Respiratory Rate 24 Blood Pressure 185/97 H 170/97 H Pulse Oximetry 100 Oxygen Delivery Method 10/09/23 19:30 10/09/23 20:00 10/09/23 20:02 Temperature Pulse Rate 59 L 59 L Respiratory Rate 19 Blood Pressure 155/84 H Pulse Oximetry 100 99 Oxygen Delivery Method 10/09/23 20:02 10/09/23 20:04 10/09/23 20:04 Temperature Pulse Rate 64 59 L Respiratory Rate 17 23 Blood Pressure 155/86 H Pulse Oximetry 100 100 Oxygen Delivery Method 10/09/23 20:14 10/09/23 20:14 10/09/23 20:30 Temperature Pulse Rate 70 Respiratory Rate 24 Blood Pressure 165/90 H 159/92 H Pulse Oximetry 95 Oxygen Delivery Method 10/09/23 20:30 Temperature Pulse Rate 59 L Respiratory Rate 21 Blood Pressure Pulse Oximetry 98 Oxygen Delivery Method Room Air Medical Decision Making Lab Data 10/09/23 19:26 10/09/23 19:26 Labs: Lab Results 10/09/23 10/09/23 Range/Units 14:19 19:26 WBC 8.0 (4.5-11.0) X10^3/uL RBC 4.99 (4.0-5.2) X10^6/uL Hgb 14.2 (12.0-16.0) g/dL Hct 43.1 (36-46) % MCV 86.3 (80-100) fL MCH 28.4 (26-34) PG MCHC 32.9 (30-36) % RDW 13.3 (11.6-14.8) % Plt Count 370 (150-400) X10^3/uL Neut % (Auto) 53.6 (50-75) % Lymph % (Auto) 34.6 (25-40) % Pettis % (Auto) 7.6 (3-14) % Eos % (Auto) 2.9 (2-4) % Baso % (Auto) 1.3 (0-2) % Neut # (Auto) 4300 (8670-4104) /uL Lymph # (Auto) 2800 (3248-6213) /uL Pettis # (Auto) 600 (0-900) /uL Eos # (Auto) 200 (0-450) /uL Baso # (Auto) 100 (0-100) /uL Sodium 137 (137-145) mmol/L Potassium 3.2 L (3.4-5.1) mmol/L Chloride 100 (98-107) mmol/L Carbon Dioxide 28 (22-32) mmol/L BUN 12 (7-17) mg/dL Creatinine 0.54 (0.52-1.04) mg/dL Estimated GFR > 60 (>60) mL/min BUN/Creatinine Ratio 22.2 H (6-22) Glucose 92 (70-100) mg/dL Calcium 9.0 (8.4-10.2) mg/dL Total Bilirubin 0.4 (0.2-1.3) mg/dL AST 39 H (14-36) IU/L ALT 41 H (<35) IU/L Alkaline Phosphatase 52 (38-126) U/L Total Creatine Kinase 123 (30-135) U/L Troponin I < 0.012 (0.01-0.034) ng/mL Total Protein 7.4 (6.3-8.2) g/dL Albumin 4.5 (3.5-5.0) g/dL Globulin 2.9 (1.7-4.1) g/dL Albumin/Globulin Ratio 1.6 (1.0-2.8) Urine Color Yellow Urine Appearance Clear Urine pH 7.0 (4.5-8.0) Ur Specific [place] 1.010 (1.000-1.035) Urine Protein Negative (Negative) Urine Glucose (UA) Negative (Negative) g/dL Urine Ketones Negative (NEGATIVE) Urine Occult Blood Negative (Negative) Urine Nitrate Negative (Negative) Urine Bilirubin Negative (NEGATIVE) Urine Urobilinogen 0.2 (0.2) E.U./dL Ur Leukocyte Esterase Negative (NEGATIVE) Urine RBC 0-1/hpf (0-5/HPF) Urine WBC None seen (0-5/HPF) Ur Squamous Epith Cells 0-1 /hpf (0-5/HPF) Urine Bacteria None seen (None) Ur Culture Indicated? Cult not indicated Point of Care Testing Test Results Negative Urine Dip Bedside Urine Glucose Negative Bedside Urine Bilirubin - Negative Bedside Urine Ketone - Negative Urine Specific [place] 1.015 Bedside Urine Occult Blood - Negative Bedside Urine pH 6 Bedside Urine Protein - Negative Bedside Urine Urobilinogen - Negative Bedside Urine Nitrite - Negative Bedside Urine Leukocytes - Negative Esterase Point of care testing: Point of Care Testing Test Results Negative Urine Dip Bedside Urine Glucose Negative Bedside Urine Bilirubin - Negative Bedside Urine Ketone - Negative Urine Specific [place] 1.015 Bedside Urine Occult Blood - Negative Bedside Urine pH 6 Bedside Urine Protein - Negative Bedside Urine Urobilinogen - Negative Bedside Urine Nitrite - Negative Bedside Urine Leukocytes - Negative Esterase Discharge Plan Departure Patient Disposition: Home Clinical Impression: Hypertension Instructions: DI for High Blood Pressure Activity Restrictions/Additional Instructions: Amlodipine has been sent to the [facility] pharmacy in [place]. Please follow up with the primary care physician for your blood pressure. Today your laboratory work and head CT were negative for concerning findings. Monitor your blood pressure at home, you may keep a log of your blood pressures to take to your next primary care appointment. Prescriptions: New amlodipine 5 mg tablet 5 mg PO DAILY Qty: 30 0RF No Action clobetasol 0.05 % ointment 1 applic topical BID 14 Days Qty: 60 6RF fluconazole [Diflucan] 150 mg tablet 150 mg PO Q3D Qty: 2 0RF Rx Instructions: Take once, repeat dose in 3 days if still symptomatic. quetiapine [Seroquel] 100 mg tablet 100 mg PO DAILY levothyroxine 50 mcg capsule 50 mcg PO DAILY hydroxychloroquine 200 mg tablet 200 mg PO DAILY lorazepam 0.5 mg tablet 0.5 mg PO BID PRN (Reason: Anxiety) dextroamphetamine-amphetamine [Adderall] 20 mg tablet 20 mg PO DAILY methadone 100 mg PO DAILY amoxicillin-pot clavulanate [Augmentin] 875-125 mg tablet 1 tab PO Q12H Qty: 20 0RF hydromorphone 2 mg tablet 2 mg PO Q4H PRN (Reason: pain) Qty: 14 0RF hydromorphone 2 mg tablet 2 mg PO Q4H PRN (Reason: pain) Qty: 40 0RF Rx Instructions: Slowly taper dosage to stop in 5 days or less. Referrals: Mike Luna MD [Primary Care Provider] - Stand Alone Forms: Patient Portal/API
[2023-10-09 19:37] LABS: Appearance Urine UA CLEAR; Bilirubin Urine UA NEGATIVE (NEGATIVE); Color Urine UA YELLOW; Glucose Urine UA NEGATIVE (Negative); Ketones Urine UA NEGATIVE (NEGATIVE); Leukocyte Esterase Urine UA NEGATIVE (NEGATIVE); Nitrite Urine UA NEGATIVE (Negative); Occult Blood Urine UA NEGATIVE (Negative); Protein Urine UA NEGATIVE (Negative); Urobilinogen Urine UA 0.2 E.U./dL (0.2)
[2023-10-09 19:43] LABS: Add Manual Diff / Slide Review NO; Basophils Absolute Auto 100 /uL (0-100); Basophils Percent Auto 1.3 % (0-2); Eosinophils Absolute Auto 200 /uL (0-450); Eosinophils Percent Auto 2.9 % (2-4); Hematocrit 43.1 % (36-46); Hemoglobin 14.2 g/dL (12.0-16.0); Lymphocytes Absolute Auto 2800 /uL (1100-4500); Lymphocytes Percent Auto 34.6 % (25-40); Mean Corpuscular HGB Conc 32.9 % (30-36); Mean Corpuscular Hemoglobin 28.4 PG (26-34); Mean Corpuscular Volume 86.3 fL (80-100); Monocytes Absolute Auto 600 /uL (0-900); Monocytes Percent Auto 7.6 % (3-14); Neutrophils Absolute Auto 4300 /uL (1500-7000); Neutrophils Percent Auto 53.6 % (50-75); Platelet Count 370 X10^3/uL (150-400); Red Blood Cell Count 4.99 X10^6/uL (4.0-5.2); Red Cell Distribution Width 13.3 % (11.6-14.8)
[2023-10-09 19:44] LABS: Bacteria Urine None Seen; Culture Indicated Urine Cult Not Indicated; RBC Urine 0-1/HPF (0-5/HPF); Squamous Epithelial Cell Urine 0-1 /HPF (0-5/HPF); WBC Urine None Seen (0-5/HPF)
[2023-10-09 20:00] LABS: Alanine Aminotransferase 41 IU/L (<35); Albumin 4.5 g/dL (3.5-5.0); Albumin Globulin Ratio 1.6 (1.0-2.8); Alkaline Phosphatase 52 U/L (38-126); Aspartate Aminotransferase 39 IU/L (14-36); BUN Creatinine Ratio 22.2 (6-22); Bilirubin Total 0.4 mg/dL (0.2-1.3); Blood Urea Nitrogen 12 mg/dL (7-17); Carbon Dioxide 28 mmol/L (22-32); Chloride 100 mmol/L (98-107); Estimated Glomerular Filt Rate > 60 mL/min (>60); Globulin 2.9 g/dL (1.7-4.1); Glucose 92 mg/dL (70-100); HEMOLYSIS < 15 (0-50); Potassium 3.2 mmol/L (3.4-5.1); Sodium 137 mmol/L (137-145); Total Protein 7.4 g/dL (6.3-8.2)
[2023-10-09 20:01] LABS: Creatine Kinase 123 U/L (30-135)
[2023-10-09 20:12] LABS: Troponin I < 0.012 ng/mL (0.01-0.034)
[2023-10-09] MEDS: IBUPROFEN 400 MG TABLET PO (20:15)
== END 2023-10-09 20:58 | disposition home or self-care (01) ==
PROVIDERS: Emergency Provider Emergency Medicine; PCP Family Medicine
DX: I10 Essential (primary) hypertension (principal); R07.9 Chest pain, unspecified
CPT/HCPCS: 36415; 70450; 80053; 81001; 81003; 81025; 82550; 84484; 85025; 93005; 93010; 99284